=== PATIENT | male | born 1955 | race Native Hawaiian/Other Pacific Islander ===

== ENCOUNTER 2018-09-20 12:18 | Outpatient (CLI) | payer OTHER ==
[2018-09-20] MEDS ORDERED: OXYCODONE HCL E10 MG PO (12:41)
[2018-09-20] MEDS ORDERED: ELIQUIS5 MG PO (12:41)
[2018-09-20] MEDS ORDERED: BUPROPION HYDR150 M1 PO (12:42)
[2018-09-20] MEDS ORDERED: ESCITALOPRAM10 MG PO (12:42)
[2018-09-20] MEDS ORDERED: FURO40TA93 PO (12:43)
[2018-09-20] MEDS ORDERED: SPIRONOLACT50 MG PO (12:43)
[2018-09-20] MEDS ORDERED: PANTOPRAZOLE SO40 M1 PO (12:44)
== END 2018-09-20 12:22 | disposition short-term general hospital (02) ==
LOC: AMB 12:18
DX: K92.0 Hematemesis (principal); R10.9 Unspecified abdominal pain
CPT/HCPCS: A0425; A0427

== ENCOUNTER 2018-09-20 12:23 | Emergency (ER) | payer OTHER ==
[~2018-09-20] VITALS: Ht 190.5 cm; Wt 88.5 kg
[2018-09-20 12:29] VITALS: TEMP 98.4
[2018-09-20] MEDS ORDERED: OXYCODONE HCL E10 MG PO (12:41)
[2018-09-20] MEDS ORDERED: ELIQUIS5 MG PO (12:41)
[2018-09-20] MEDS ORDERED: ESCITALOPRAM10 MG PO (12:42)
[2018-09-20] MEDS ORDERED: BUPROPION HYDR150 M1 PO (12:42)
[2018-09-20] MEDS ORDERED: SPIRONOLACT50 MG PO (12:43)
[2018-09-20] MEDS ORDERED: FURO40TA93 PO (12:43)
[2018-09-20] MEDS ORDERED: PANTOPRAZOLE SO40 M1 PO (12:44)
[2018-09-20 13:26] LABS: PLATELET COUNT 201 K/uL (142-355)
[2018-09-20 13:31] LABS: POTASSIUM 3.6 mmol/L (3.6-5.2)
[2018-09-20 14:04] LABS: PARTIAL THROMBOPLASTIN TIME 34.9 SECONDS (24.5-33.6)
[2018-09-20 16:14] VITALS: BP 98/70
== END 2018-09-20 16:20 | disposition short-term general hospital (02) ==
LOC: ED 12:23
PROVIDERS: Student in an Organized Health Care Education/Training Program
DX: K92.2 Gastrointestinal hemorrhage, unspecified (principal); J18.9 Pneumonia, unspecified organism; K72.90 Hepatic failure, unspecified without coma
CPT/HCPCS: 80053; 81000; 82140; 84484; 85027; 85610; 85730; 86850; 86900; 86901; 87040; 93005; 96361; 96365; 96375; 99284; J1956; J3490

== ENCOUNTER 2018-09-20 16:25 | Outpatient (CLI) | payer OTHER ==
[~2018-09-20 16:25] MED LIST: BUPROPION HYDR150 M1 PO; ELIQUIS5 MG PO; ESCITALOPRAM10 MG PO; FURO40TA93 PO; OXYCODONE HCL E10 MG PO; PANTOPRAZOLE SO40 M1 PO; SPIRONOLACT50 MG PO
== END 2018-09-20 17:42 | disposition short-term general hospital (02) ==
LOC: AMB 16:25
DX: K72.90 Hepatic failure, unspecified without coma (principal); K92.2 Gastrointestinal hemorrhage, unspecified; R53.1 Weakness
CPT/HCPCS: A0425; A0429